=== PATIENT | female | born 1965 | race Caucasian/White ===

== ENCOUNTER 2025-01-16 09:54 | Day surgery (SDC) | payer OTHER, SELFPAY ==
[2025-01-16 10:52] VITALS: BP 174/56; PULSE 49; RESP 18; TEMP 36.5; O2SAT 98; BMI 34.3
[2025-01-16] MEDS: LACTATED RINGERS 1000ML 1,000 ML 50 ML IV (11:01)
[2025-01-16 11:04] LABS: POC Glucose,Bedside 80 (70-110)
--- NOTE | 2025-01-16 11:17 | P.HP_ITS ---
History of Present Illness *Admission Date: 01/16/25 *Reason for visit:: High risk screening colonoscopy *History of present illness: Mrs. Malloy is a 59-year-old female who is here for screening colonoscopy. Her sister had colon cancer at the age of 71. Her last colonoscopy was in 2017. The examination is deemed medically necessary for high risk screening colonoscopy. The patient has been seen, interviewed and examined prior to the procedure by both myself and the anesthesia provider. [facility] Disclaimer: The information contained in this section may have been updated after the patient was seen, as this information can be updated by other users. Medical History (Updated 01/16/25 @ 11:26 by Thomas Robles II, MD) History of COVID-19 Diabetes Hyperlipidemia Hypertension Surgical History (Updated 01/16/25 @ 10:53 by Petty Laureano RN) No significant past surgical history Family History (Updated 01/16/25 @ 10:53 by Petty Laureano RN) Other Colon cancer Social History (Updated 01/16/25 @ 10:54 by Petty Laureano RN) Smoking Status: Former smoker alcohol intake: never current occupational status: employed Travel in the last 8 weeks: None caffeine: No Have you lived/traveled outside [place] in past 30 days?: No Contact w/someone who lives/traveled outside [place] past 30 days?: No Exposure to someone with infectious disease in past 14 days?: No Do you have a fever (greater than 100.4 F or 38 C)?: No Have you tested positive for COVID-19: Yes Exposed to someone with COVID-19 in past 14 days?: No Do you have a sore throat?: No Do you have a cough?: No Do you have any weakness?: No Are you experiencing any nausea/vomitting?: No Do you have any diarrhea?: No Are you experiencing any unusual bleeding?: No Do you have any muscle aches/pain?: No Do you have any abdominal pain?: No Are you experiencing loss of taste or smell?: No Review of Systems Review of Systems Review of systems (narrative): Negative *Cardiovascular Comments: Negative *Gastrointestinal Comments: Negative *Genitourinary Comments: Negative *Musculoskeletal Comments: Negative *Neurologic Comments: Negative Meds Home Medications and Allergies Home Medications ?Medication ?Instructions ?Recorded ?Confirmed ?Type peg 3350-electrolytes 236 240 ml PO Q10M colonscopy #4,000 mL 01/10/25 Rx gram-22.74 gram-6.74 gram-5.86 gram solution (Golytely) aspirin 81 mg capsule 81 mg PO DAILY 01/16/25 01/16/25 History cholecalciferol (vitamin D3) 10 0 mcg PO DAILY 01/16/25 01/16/25 History mcg (400 unit) capsule (Vitamin D3) lisinopril 10 1 tab PO DAILY 01/16/25 01/16/25 History mg-hydrochlorothiazide 12.5 mg tablet metformin 1,000 mg tablet 1,000 mg PO BID 01/16/25 01/16/25 History multivitamin 1 tab PO DAILY 01/16/25 01/16/25 History rosuvastatin 40 mg tablet 40 mg PO DAILY 01/16/25 01/16/25 History New Prescriptions to Start Prescriptions: Allergies Allergy/AdvReac Type Severity Reaction Status Date / Time No Known Allergies Allergy Verified 01/16/25 10:46 Exam Data for Last 24 hours Vital signs and Labs for Last 24 Hours: Temp Pulse Resp BP Pulse Ox O2 Del Method 97.7 F 49 L 18 174/56 H 98 Room Air 01/16/25 10:52 01/16/25 10:52 01/16/25 10:52 01/16/25 10:52 01/16/25 10:52 01/16/25 10:52 Laboratory Results - last 24 hr 01/16/25 10:59: POC Glucose 80 I & O for Last 24 hours: Intake & Output 01/13/25 01/14/25 01/15/25 01/16/25 23:59 23:59 23:59 23:59 Weight 194 lb *Routine HEENT Exam Head: Present normocephalic Eye: Present EOMI and PERRL ENT: Present mucous membranes moist *Routine Neck Exam Neck: Present supple *Routine Respiratory Exam Respiratory: Present CTA bilaterally *Routine Cardiovascular Exam Cardiovascular: Present RRR *Routine Abdominal Exam Abdominal: Present soft and normoactive bowel sounds; Absent tenderness *Routine Rectal Exam Rectal:: deferred *Routine Genitalia Exam Genitalia:: deferred *Routine Extremities Exam Extremities: Absent cyanosis, clubbing or edema *Routine Skin Exam Skin: Present warm; Absent rash *Routine Neurological Exam Neurological: Present alert and oriented X3 Assessment and Plan *Assessment and plan (1) Family history of colon cancer: Status: Acute Category: Medical Code(s): Z80.0 - Family history of malignant neoplasm of digestive organs (2) Screening for colon cancer: Status: Acute Category: Medical Code(s): Z12.11 - Encounter for screening for malignant neoplasm of colon Plan A/P: 1. High risk screening colonoscopy is the preprocedural diagnosis. The patient will be anesthetized/sedated using MAC sedation. The patient has been seen and examined. Cardiac and lung assessment prior to the examination is stable. Proceed with planned surveillance/screening colonoscopy
--- NOTE | 2025-01-16 11:27 | P.PCN_ITS ---
[facility] Procedure Note Date: 01/16/25 Time: 11:42 Procedure Note:: Colonoscopy Procedure Report: Colonoscopy with cold snare polypectomy Endoscopist: Tohmas Robles II, MD Referring physician: JÚNIOR Carter Date of Procedure: January 16, 2025 Equipment: Olympus 190 variable stiffness pediatric colonoscope Sedation: MAC sedation Indication: Mrs. Malloy is a 59-year-old female who is here for high risk screening colonoscopy. Her sister had colon cancer at the age of 71. Her last colonoscopy at [facility] in 2017 (Dr. Felice Collins) was normal. She reports no abdominal pain, weight loss, change in her bowel habits or rectal bleeding. Procedure: Prior to the procedure, a history and physical exam was performed, and patient's medications and allergies were reviewed. The risks, benefits and alternatives of the sedation and procedure were discussed with the patient. All questions were answered and informed consent was obtained. The patient was brought to the procedure room. Patient identification and proposed procedure were verified by the physician and the nurse. The patient was placed in a left lateral decubitus position and the scope was passed under direct vision. Throughout the procedure, the patient's blood pressure, pulse, and oxygen saturations were monitored continuously. The colonoscopy was accomplished without difficulty. The patient tolerated the procedure well. Findings: On digital rectal examination there was normal rectal tone. There were no external hemorrhoids. The colonoscope was introduced through the anal canal to the rectum and advanced to the cecum. The ileocecal valve and appendiceal orifice were identified. The scope was advanced a short distance into the ileum which appeared grossly normal. The scope was then withdrawn into the colon. The cecum, ascending and transverse colon and mucosa were grossly normal. There were scattered diverticuli throughout the descending and sigmoid colon (LEFT colon). There were 2 polyps (descending x 1 (3 mm) and sigmoid x 1 (5 mm)). Both of these were removed via cold snare polypectomy. The rectum itself was normal. Upon retroflexion within the rectum there were grade 1-2 internal hemorrhoids. The preparation was excellent throughout with Temple Preparation Score of 9. The cecal time was 12 minutes. Impression: 1. Diminutive colonic polyps x 2 2. Left-sided diverticulosis 3. Grade 1-2 internal hemorrhoids Plan: I will follow-up the polyp histology and recommend repeat surveillance colonoscopy again in 7 years. I would encourage psyllium bulking fiber supplementation on a long-term daily maintenance basis.
[2025-01-16 11:28] VITALS: O2SAT 100
[2025-01-16 11:46] VITALS: BP 94/54; PULSE 51; RESP 16; TEMP 36.2; O2SAT 98
[2025-01-16 11:56] VITALS: BP 111/53; PULSE 49; RESP 18; O2SAT 100
[2025-01-16 12:06] VITALS: BP 117/54; PULSE 51; RESP 16; O2SAT 100
[2025-01-16 12:14] VITALS: BP 116/69; PULSE 46; RESP 18; O2SAT 100
--- NOTE | 2025-01-16 16:10 | EXP.ANES.CKL ---
[facility] Disclaimer: The information contained in this section may have been updated after the patient was seen, as this information can be updated by other users. Medical History (Updated 01/16/25 @ 11:26 by Thomas Robles II, MD) History of COVID-19 Diabetes Hyperlipidemia Hypertension Surgical History (Updated 01/16/25 @ 10:53 by Petty Laureano RN) No significant past surgical history Family History (Updated 01/16/25 @ 10:53 by Petty Laureano, NORAH) Other Colon cancer Social History (Updated 01/16/25 @ 10:54 by Petty Laureano RN) Smoking Status: Former smoker alcohol intake: never substance use type: denies use current occupational status: employed Travel in the last 8 weeks: None caffeine: No [facility] Anesthesia Checklist Patient Identification Patient Identification: Arm Band Structural Data Admitted From: Home Planned Operative Procedure/s: Colonoscopy Consent for Planned Operative Procedure(s) Verified: Yes Verified Documents: Surgical Consent and History and Physical Additional verifications Anesthesia Reactions: No Airway Assessment Mallampati Score:: Class II C-Spine Mobility Assessed: Yes TMJ Mobility Assessed: Yes Neurological Assessment Level of Consciousness: Awake, Alert and Appropriate Anesthesia Plan Anesthesia Risk discussed: Yes Anesthesia Plan: Verified ASA Class: II Anesthesia Type: MAC
== END 2025-01-16 12:20 | disposition home or self-care (01) ==
PROVIDERS: PCP Nurse Practitioner Family; Visit Provider Internal Medicine Gastroenterology
PROC: 0DJD8ZZ Inspection of Lower Intestinal Tract, Via Natural or Artificial Opening Endoscopic (ICD-10-PCS; CPT 45378; principal; 2025-01-16 12:00)
DX: D12.4 Benign neoplasm of descending colon (principal); D12.5 Benign neoplasm of sigmoid colon; K57.30 Diverticulosis of large intestine without perforation or abscess without bleeding; K64.8 Other hemorrhoids; Z80.0 Family history of malignant neoplasm of digestive organs; Z12.11 Encounter for screening for malignant neoplasm of colon
CPT/HCPCS: 45385; 82962; J7120